=== PATIENT | female | born 1960 | race Caucasian/White ===

== ENCOUNTER → 2016-08-30 | Outpatient (CLI) | payer OTHER ==
[~2016-08-30] MED LIST: ANTIVERT 25MG25 MG PO; ASPIRIN 32325 MG/TAB PO; ASPIRIN 81M81 MG/TA2 PO; BENICAR 20MG TA20 MG PO; CALCIUM + D 5001 TAB PO; CELEXA 20MG20 MG/TAB PO; CHOLESTOFF PO; CLARITIN; CRESTOR 10MG10 MG PO; EFFIENT10 MG PO; FISH OIL CONC1000 MG PO; FOLIC ACID0.4 MG PO; IMDUR 30MG30 MG/TAB PO; IMDUR 60MG60 MG/TAB PO; LEVOXYL0.088 MG PO; LEXAPRO20 MG PO; LIPITOR80 MG PO; LOPRESSOR 550 MG/TAB PO; LORTAB 7.5/5001 TAB PO; LOW DOSE ASPIRI81 MG PO; MAGNESIUM500 MG PO; METOPROLOL TART25 MG PO; MIDRIN 325 MG-11 CAP PO; MIRAPEX0.25 MG PO; MULTIPLE VITAMI1 TAB PO; MVI PO; NIASPAN500 MG PO; NITROSTAT0.4 MG/TAB SL; NORCO 325 MG-51 TAB PO; OSCAL 500MG/VI500 MG PO; PHENERGAN 25 TA25 MG PO; PHENERGAN25 MG RC; PRILOSEC 20MG20 MG PO; RITE AID KRILL500 MG PO; SYNTHROID 0.10.15 MG PO; SYNTHROID0.175 MG PO; TIROSINT137 MCG PO; TOPROL XL 25MG25 MG PO; TYLENOL 325MG325 MG PO; VESICARE10 MG PO; VITAMIN B1225 MCG PO; VITAMIN D32000 I1 PO; WELLBUTRIN 100100 MG PO; WELLBUTRIN 75MG75 MG; WELLBUTRIN XL300 M1 PO
== END ==
LOC: BHSO 14:26
DX: F33.42 Major depressive disorder, recurrent, in full remission (principal)

== ENCOUNTER 2016-12-06 05:43 | Day surgery (SDC) | payer OTHER ==
[2016-12-06] VITALS (786 sets, daily range): BP systolic 82–133; BP diastolic 61–90; PULSE 58–77; TEMP 97–98.5; O2SAT 76–100
[~2016-12-06] VITALS: Ht 162.6 cm; Wt 74.3 kg
[~2016-12-06 05:43] MED LIST changes: -LOPRESSOR 550 MG/TAB PO; -TYLENOL 325MG325 MG PO
[2016-12-06 06:41] LABS: HEMATOCRIT 37.5 % (37.0-47.0); HEMOGLOBIN 12.2 g/dl (12.5-16.0); MEAN CELL VOLUME 92 fl (80.0-100.0); MEAN CORPUSCULAR HEMOGLOBIN 30 pg (27.0-31.0); MEAN CORPUSCULAR HGB CONC 33 g/dl (33.0-37.0); MEAN PLATELET VOLUME 9.9 fl (7.4-10.4); PLATELET COUNT 272 K/mm3 (130-400); RED BLOOD COUNT 4.09 M/mm3 (4.10-5.30)
[2016-12-06 06:53] LABS: PROTHROMBIN TIME 11.1 SECONDS (9.7-12.8)
[2016-12-06 07:07] LABS: CALCIUM 8.9 mg/dL (8.4-10.2); CREATININE, serum 0.91 mg/dL (0.52-1.25); POTASSIUM 3.8 mmol/L (3.4-5.0)
[2016-12-06] MEDS ORDERED: LOPRESSOR 550 MG/TAB PO (07:40)
[2016-12-06] MEDS ORDERED: TYLENOL 325MG325 MG PO (07:46)
[2016-12-07] VITALS (800 sets, daily range): BP systolic 103–130; BP diastolic 52–83; PULSE 70–74; TEMP 97.5–98.4; O2SAT 47–100
[2016-12-07 06:02] LABS: MEAN CELL VOLUME 92 fl (80.0-100.0); MEAN CORPUSCULAR HGB CONC 33 g/dl (33.0-37.0); MEAN PLATELET VOLUME 10.2 fl (7.4-10.4); PLATELET COUNT 235 K/mm3 (130-400); RED BLOOD COUNT 3.94 M/mm3 (4.10-5.30); REDCELL DISTRIBUTION WIDTH-CV 13.2 % (11.5-14.5); WHITE BLOOD COUNT 6.5 K/mm3 (4.8-10.8)
[2016-12-07 06:04] LABS: HEMATOCRIT 36.2 % (37.0-47.0); HEMOGLOBIN 11.8 g/dl (12.5-16.0); MEAN CORPUSCULAR HEMOGLOBIN 30 pg (27.0-31.0)
[2016-12-07 06:11] LABS: CALCIUM 9.1 mg/dL (8.4-10.2); CREATININE, serum 0.76 mg/dL (0.52-1.25); POTASSIUM 4.5 mmol/L (3.4-5.0)
== END 2016-12-07 13:55 | disposition home or self-care (01) ==
LOC: COL.CAR 05:43 → ICU 09:19 → COL.CAR 12-07 13:55 → ICU 12-07 13:55
PROVIDERS: Internal Medicine Interventional Cardiology
DX: I25.110 Atherosclerotic heart disease of native coronary artery with unstable angina pectoris (principal); I73.9 Peripheral vascular disease, unspecified; Z95.5 Presence of coronary angioplasty implant and graft; Z90.710 Acquired absence of both cervix and uterus; Z82.49 Family history of ischemic heart disease and other diseases of the circulatory system; Z87.891 Personal history of nicotine dependence
CPT/HCPCS: OP; C1725; C1769; C1874; C1887; C9600; J0583; J2250; J3010; Q9967

== ENCOUNTER → 2017-02-12 | Outpatient (CLI) | payer OTHER ==
[~2017-02-12] MED LIST changes: +LOPRESSOR 550 MG/TAB PO; +TYLENOL 325MG325 MG PO
== END ==
LOC: BHSO 13:21
DX: F33.2 Major depressive disorder, recurrent severe without psychotic features (principal)

== ENCOUNTER 2017-05-07 15:55 | Outpatient (CLI) | payer OTHER ==
[~2017-05-07] VITALS: Ht 162.6 cm; Wt 75.0 kg
[~2017-05-07 15:55] MED LIST changes: -SYNTHROID0.175 MG PO
[2017-05-07] MEDS ORDERED: PRISTIQ 50 MG T50 MG PO (16:57)
[2017-05-07 17:00] VITALS: BP 117/76; PULSE 81; TEMP 97.6
== END 2017-05-07 17:43 | disposition home or self-care (01) ==
LOC: EUO 15:55
DX: M81.0 Age-related osteoporosis without current pathological fracture (principal); M85.80 Other specified disorders of bone density and structure, unspecified site; K22.2 Esophageal obstruction
CPT/HCPCS: J3489

== ENCOUNTER → 2017-12-30 | Outpatient (CLI) | payer OTHER ==
[~2017-12-30] MED LIST changes: +PRISTIQ 50 MG T50 MG PO
== END ==
LOC: BHSO 15:07
DX: F33.42 Major depressive disorder, recurrent, in full remission (principal)
CPT/HCPCS: G0463

== ENCOUNTER → 2018-05-15 | Outpatient (CLI) | payer OTHER | LOC: MC.RAD 13:33 | DX: Z12.31 Encounter for screening mammogram for malignant neoplasm of breast (principal) ==

== ENCOUNTER 2018-09-03 16:30 | Outpatient (RCR) | payer OTHER | END 2018-09-04 08:40 | disposition home or self-care (01) | LOC: WSC 16:30 | DX: M75.41 Impingement syndrome of right shoulder (principal) ==

== ENCOUNTER → 2018-10-12 | Outpatient (CLI) | payer OTHER | LOC: COL.RAD 12:55 | DX: J43.9 Emphysema, unspecified (principal) ==

== ENCOUNTER → 2019-01-06 | Outpatient (CLI) | payer OTHER | LOC: COL.RAD 10:20 | DX: J43.9 Emphysema, unspecified (principal); J98.4 Other disorders of lung; I77.1 Stricture of artery; Z96.698 Presence of other orthopedic joint implants | CPT/HCPCS: Q9967 ==

== ENCOUNTER 2019-01-14 16:00 | Outpatient (RCR) | payer OTHER | END 2019-01-21 | disposition still patient (30) | LOC: WSC | DX: M25.811 Other specified joint disorders, right shoulder (principal); Z98.890 Other specified postprocedural states | CPT/HCPCS: G0283-GP ==

== ENCOUNTER 2019-02-16 16:00 | Outpatient (RCR) | payer OTHER | END 2019-02-18 15:04 | disposition home or self-care (01) | LOC: WSC 16:00 | DX: M25.811 Other specified joint disorders, right shoulder (principal) ==

== ENCOUNTER → 2019-06-21 | Outpatient (CLI) | payer OTHER | LOC: MC.RAD 14:39 | DX: Z12.31 Encounter for screening mammogram for malignant neoplasm of breast (principal) ==

== ENCOUNTER → 2019-07-08 | Outpatient (CLI) | payer OTHER | LOC: COL.RAD 09:58 | DX: R10.31 Right lower quadrant pain (principal) ==

== ENCOUNTER → 2020-06-22 | Outpatient (CLI) | payer OTHER | LOC: MC.RAD 13:35 | DX: Z12.31 Encounter for screening mammogram for malignant neoplasm of breast (principal) ==

== ENCOUNTER 2021-03-27 07:13 | Emergency (ER) | payer OTHER ==
[~2021-03-27] VITALS: Ht 157.5 cm; Wt 61.8 kg
[2021-03-27 07:20] VITALS: TEMP 98.1
[2021-03-27 11:45] VITALS: BP 137/74; PULSE 63
== END 2021-03-27 11:45 | disposition home or self-care (01) ==
LOC: COL.ER 07:13
DX: M79.604 Pain in right leg (principal); I25.10 Atherosclerotic heart disease of native coronary artery without angina pectoris; F17.210 Nicotine dependence, cigarettes, uncomplicated; Z95.5 Presence of coronary angioplasty implant and graft; Z86.718 Personal history of other venous thrombosis and embolism; Z79.02 Long term (current) use of antithrombotics/antiplatelets; Z88.8 Allergy status to other drugs, medicaments and biological substances; Z79.82 Long term (current) use of aspirin

== ENCOUNTER → 2021-06-27 | Outpatient (CLI) | payer OTHER | LOC: MC.RAD 10:58 | DX: Z12.31 Encounter for screening mammogram for malignant neoplasm of breast (principal) ==

== ENCOUNTER 2022-11-15 21:32 | Observation (INO) | payer OTHER ==
[~2022-11-15] VITALS: Ht 157.5 cm; Wt 66.4 kg
[~2022-11-15 21:32] MED LIST changes: -CRESTOR 10MG10 MG PO; +CRESTOR20 MG PO; +PRIL40 PO; -PRILOSEC 20MG20 MG PO; +SYNTHROID0.112 MG/T PO
[2022-11-15 22:00] LABS: PROTHROMBIN TIME 11.2 SECONDS (9.7-12.8)
[2022-11-15 22:09] LABS: TROPONIN-I < 0.010 ng/mL (0.00-0.033)
[2022-11-15 22:19] LABS: ALANINE AMINOTRANSFERASE 18 U/L (0-55); ALBUMIN 3.8 gm/dL (3.4-4.8); ALKALINE PHOSPHATASE 80 U/L (40-150); ANION GAP 13 mmol/L (7-16); AST,SGOT 17 U/L (5-34); BILIRUBIN,TOTAL 0.3 mg/dL (0.2-1.2); BLOOD UREA NITROGEN 16 mg/dL (10-20); CARBON DIOXIDE 26 mmol/L (23-31); CHLORIDE 102 mmol/L (98-107); CREATININE, serum 0.82 mg/dL (0.57-1.11); GLUCOSE 103 mg/dL (70-99); LIPASE 75 U/L (8-78); POTASSIUM 3.1 mmol/L (3.5-4.5); SODIUM 141 mmol/L (136-145); TOTAL PROTEIN 7.1 gm/dL (6.2-8.1)
[2022-11-15] MEDS ORDERED: COZAAR 25MG25 MG/TAB PO (22:44)
[2022-11-15] MEDS ORDERED: HCTZ12.5TAB PO (22:48)
[2022-11-15] MEDS ORDERED: MUCINEX1200 MG PO (22:49)
[2022-11-15] MEDS ORDERED: MIRAPEX0.75 MG PO (22:49)
[2022-11-15] MEDS ORDERED: FISH OIL 500 M1 EAC1 PO (23:46)
[2022-11-16] VITALS (11 sets, daily range): BP systolic 102–144; BP diastolic 44–71; PULSE 75–105; TEMP 97.6–98.6
[2022-11-16 04:14] LABS: BASO # 0.1 K/mm3 (0.0-0.2); EOS # 0.2 K/mm3 (0.0-0.7); EOS % 3.4 % (0.0-4.0); GRAN # 3.9 K/mm3 (1.4-6.5); GRAN % 56.2 % (42.2-75.2); HEMOGLOBIN 12.5 g/dl (12.5-16.0); LYMPH # 2.2 K/mm3 (1.2-3.4); MEAN CELL VOLUME 91 fl (80.0-100.0); MEAN CORPUSCULAR HEMOGLOBIN 31 pg (27-31); MEAN CORPUSCULAR HGB CONC 34 g/dl (33.0-37.0); MEAN PLATELET VOLUME 9.4 fl (7.4-10.4); MONO # 0.6 K/mm3 (0.1-0.6); MONO % 8.3 % (1.7-9.3); PLATELET COUNT 234 K/mm3 (130-400); RED BLOOD COUNT 4.03 M/mm3 (4.10-5.30); REDCELL DISTRIBUTION WIDTH-CV 13.3 % (11.5-14.5)
[2022-11-16 04:15] LABS: HEMATOCRIT 36.8 % (37.0-47.0)
[2022-11-16 04:33] LABS: ANION GAP 9 mmol/L (7-16); BLOOD UREA NITROGEN 18 mg/dL (10-20); CALCIUM 9.7 mg/dL (8.4-10.2); CARBON DIOXIDE 28 mmol/L (23-31); CHLORIDE 104 mmol/L (98-107); CREATININE, serum 0.74 mg/dL (0.57-1.11); GLUCOSE 115 mg/dL (70-99); MAGNESIUM 1.7 mg/dL (1.6-2.6); POTASSIUM 3.8 mmol/L (3.5-4.5); SODIUM 141 mmol/L (136-145)
[2022-11-16 04:41] LABS: TROPONIN-I 6 HR POST INITIAL < 0.010 ng/mL (0.00-0.033)
--- NOTE | 2022-11-16 05:05 | NUR ---
PT ARRIVED TO THE MEDICAL FLOOR A LITTLE AFTER 2330HRS TO ROOM 357. PT A&O X 4; VSS; O2 RA. PT DENIED GENERAL PAIN, CHEST PAIN, PALPITATIONS, SOB, N,V,D OR DIZZINESS. ADMISSIONS ASSESSMENT AND MED REC COMPLETE. PT ORIENTED TO ROOM AND HOSPITAL POLICY. POC DISCUSSED WITH PT. PT VERBALIZED UNDERSTANDING. PT EXPRESSED NO ADDITIONAL NEEDS AT THIS TIME. CALL LIGHT WITHIN REACH.
--- NOTE | 2022-11-16 15:08 | NUR ---
PATIENT ALERT AND ORIENTED X4. IV TO LEFT FOREARM. POSSIBLE ECHO AND STRESS TEST FRIDAY. NO NEW CONCERNS.
[2022-11-17 01:00] VITALS: BP_SYST 124
[2022-11-17 04:40] VITALS: BP 124/68; PULSE 80; TEMP 98.1
[2022-11-17 05:00] VITALS: BP_SYST 124
--- NOTE | 2022-11-17 05:11 | NUR ---
Pt sleeping upon entry for shift assessment around 2150. A&Ox4. All medication administered per emar. Pt expressed some question regarding her medication, which was answered. Pt verbalized understanding. Denies any s/s of chest pain, nausea, dizziness, etc. RAC INT is CDI. Belongings and call light are within reach.
[2022-11-17 08:01] VITALS: BP 128/73; PULSE 76; TEMP 97.5
[2022-11-17] MEDS ORDERED: LIPITOR 40MG TA40 MG PO ×2 (08:54)
[2022-11-17] MEDS ORDERED: PLAVIX 75MG TAB75 MG PO ×2 (08:56)
[2022-11-17] MEDS ORDERED: NITROSTAT0.3 MG SL (08:56)
[2022-11-17 09:48] VITALS: BP_SYST 128
[2022-11-17] MEDS ORDERED: CRESTOR20 MG PO (10:51)
== END 2022-11-17 11:22 | disposition home or self-care (01) ==
LOC: COL.ER 21:32 → MEDICAL 22:59
PROVIDERS: Nurse Practitioner Primary Care; Student in an Organized Health Care Education/Training Program; ADMIT Internal Medicine
DX: R07.2 Precordial pain (principal); E87.6 Hypokalemia; I25.10 Atherosclerotic heart disease of native coronary artery without angina pectoris; I10 Essential (primary) hypertension; J44.9 Chronic obstructive pulmonary disease, unspecified; E03.9 Hypothyroidism, unspecified; G25.81 Restless legs syndrome; F17.210 Nicotine dependence, cigarettes, uncomplicated; Z79.82 Long term (current) use of aspirin; Z95.5 Presence of coronary angioplasty implant and graft; Z79.890 Hormone replacement therapy; Z79.899 Other long term (current) drug therapy
CPT/HCPCS: G0378